=== PATIENT | female | born 1985 | race Caucasian/White ===

== ENCOUNTER 2025-02-22 11:23 | Outpatient (AMB) | payer BC, SELFPAY ==
--- NOTE | 2025-02-22 11:31 | A.OFFVIS_ITS ---
Intake Visit Reasons: seen 2021, migrane Allergies aspirin Allergy (Unknown, Verified 12/15/24 07:56) Unknown Medication List - Last Reconciled 02/22/25 by Vi Huynh MD lorazepam 1 mg PO BEDTIME PRN magnesium oxide 500 mg PO DAILY omeprazole 20 mg PO DAILY propranolol 20 mg PO BID ropinirole 0.25 mg PO DAILY sertraline 100 mg PO DAILY trazodone 50 mg PO BEDTIME PRN verapamil 40 mg PO DAILY HPI Comments Details: 36 yo woman with migraine, RLS, and brain cavernous angiomas. She was still having 3-4 headaches a month. She said verapamil did not make any difference. She used to take cyclobenzaprine that had helped but taking 10 mg of cyclobenzaprine made her tired. She was here mostly very concerned about her previous diagnosis of cavernous angiomas and lack of any imaging since 2015. She was not having any seizure-like episode or any stroke-like symptoms. [facility] Medical History (Updated 02/22/25 @ 11:33 by Vi Huynh MD) Depression with anxiety RLS (restless legs syndrome) Cavernous angioma Migraine Chronic daily headache Review of Systems Const Details: As per HPI Physical Exam Neuro Other: Mental Status: Alert and oriented to person, place, and time. Normal attention. Normal spontaneous speech, fluency, and comprehension. No obvious issues with mood and memory. Affect is appropriate. Cranial Nerves: CN II: Visual bolaños full to confrontation, visual acuity intact. CN III, IV, : Pupils equal, round, reactive to light and accommodation. Extraocular movements are normal. CN V: Facial sensation is normal. CN VII: Facial movements symmetrical. CN VIII: Hearing intact to bedside conversation is normal. CN IX, X: Palate elevates symmetrically. CN XI: Shoulder shrug and head turn symmetrical. CN XII: Tongue midline without atrophy or fasciculations. Extrapyramidal: Full facial expressions and blinking. No rigidity. Movements are appropriate with no tremor or abnormality. Speech: Normal; no dysarthria or tremor. Assessment & Plan Assessment & Plan (1) Migraine: Comment: Meds tried: Topamax, Gabapentin, Lyrica, Amitriptyline, Depakote, propranolol MRI brain WO at [facility] in May 2015: L and R parietal cortical cavernous angiomas. Code(s): G43.909 - Migraine, unspecified, not intractable, without status migrainosus Category: Medical Qualifiers: Migraine type: migraine (< 15 days per month) without aura Status migrainosus presence: without status migrainosus Intractability: intractable Qualified Code(s): G43.019 - Migraine without aura, intractable, without status migrainosus (2) RLS (restless legs syndrome): Code(s): G25.81 - Restless legs syndrome Category: Medical (3) Cavernous angioma: Code(s): D18.00 - Hemangioma unspecified site Category: Medical Plan Impression: a: Migraine w/o aura b: RLS c: Cavernous angiomas, cerebral, with evidence of epilepsy Rec: a: Cyclobenzperine 5mg one at bedtime as needed for headache, which she said had worked for her b: Ropinorole 0.25mg one at bedtime as needed for RLS c: MRI of brain without contrast. She was also educated about cavernous angioma and its pathophysiology. Orders: Orders MR head/brain wo con Today D18.00 - Hemangioma unspecified site Medications: New cyclobenzaprine 5 mg orally one as needed for headache; 90 tabs 0RF Changed From ropinirole 0.25 mg PO DAILY To ropinirole 0.25 mg orally at bedtime as needed; 90 tabs 0RF Coding Level of Care Code Est Pt Level 4 (98658) Diagnoses Intractable migraine without aura and without status migrainosus G43.019 Migraine type: migraine (< 15 days per month) without aura Status migrainosus presence: without status migrainosus Intractability: intractable RLS (restless legs syndrome) G25.81 Cavernous angioma D18.00
== END 2025-02-22 12:00 | disposition home or self-care (01) ==
LOC: HO.HSM 11:23
PROVIDERS: PCP Internal Medicine; Visit Provider Psychiatry & Neurology Neurology
DX: G43.019 Migraine without aura, intractable, without status migrainosus (principal); G25.81 Restless legs syndrome; D18.00 Hemangioma unspecified site
CPT/HCPCS: 99214